=== PATIENT | female | born 1940 | race Caucasian/White ===

== ENCOUNTER 2017-03-30 12:56 | Observation (INO) | payer MEDICARE, OTHER ==
[2017-03-30 13:24] LABS: BASOPHIL# 0.2 X 10^3uL (0.0-0.1); BASOPHILS 3.2 % (0.0-2.0); EOSINOPHILS 0.7 % (0.0-6.0); HEMATOCRIT 26.2 % (36.0-48.0); HEMOGLOBIN 9.2 g/dL (12.0-16.0); LYMPHOCYTES 15.7 % (20.0-40.0); LYMPHOCYTES# 1.1 X 10^3uL (0.8-3.8); MEAN CELL VOLUME 84.2 fL (80.0-100.0); MEAN CORPUSCULAR HEMOGLOBIN 29.5 pg (29.0-35.0); MEAN PLATELET VOLUME 7.8 fL (7.4-10.4); MONOCYTES# 0.4 X 10^3uL (0.2-1.0); NEUTROPHILS 74.4 % (54.0-75.0); RED BLOOD COUNT 3.12 X 10^6uL (4.20-6.10); RED CELL DISTRIBUTION WIDTH 14.4 % (11.5-14.5); WHITE BLOOD COUNT 6.7 X 10^3uL (3.9-10.7)
[2017-03-30] MEDS ORDERED: ONDANSETRON HCL 4 MG/2 ML VIAL ONE ×2 (13:33→13:43)
[2017-03-30] MEDS ORDERED: FENTANYL 100 MCG/2 ML VIAL ONE (13:33)
[2017-03-30 13:38] LABS: ALBUMIN 3.5 g/dL (3.5-5.0); BILIRUBIN, DIRECT 0.3 mg/dL (0.0-0.4); BILIRUBIN, TOTAL 1.1 mg/dL (0.2-1.3); POTASSIUM 4.7 mmol/L (3.5-5.1); TOTAL PROTEIN 7.2 g/dL (6.3-8.2)
--- NOTE | 2017-03-30 15:21 | CT REPORT ---
HISTORY: Diverticulitis. COMPARISON: None. TECHNIQUE: This examination was performed using automated exposure control, adjustment of mA or kV according to patient size, and/or use of iterative reconstruction technique. Axial CT images of the abdomen and pe lvis were obtained following rectal contrast. No intravenous contrast was administered. Please note that the lack of IV contrast decreases the sensitivity of the examination for detection of hepatic, r enal, and pancreatic masses. Lack of oral contrast decreases the sensitivity for detection of bowel pathology. FINDINGS: Abdomen: Lung bases: There is scarring or atelectasis in both lung bases. The heart is mildly enlarged. Liver: The liver appears unremarkable. Gallbladder: The gallbladder is partially contracted. No calcified gallstones are identified. Spleen: Normal. Pancreas: The pancreas is atrophic. Adrenal glands: Normal. Kidneys: There is no evidence of renal or ureteral calculi. There is no hydronephrosis. There is pro bable scarring in the right kidney. There are 2 small hyperdense lesions in the upper pole of the lef t kidney and one small hyperdense lesion in the lower pole the left kidney measuring up to 9 mm in di ameter, likely hyperdense hemorrhagic cysts. Bowel: There may be a tiny hiatal hernia. There is contrast in the colon and refluxing into the dist al ileum. Contrast has also refluxed into the normal-appearing appendix. The small bowel loops are no rmal in caliber. There is mild diffuse thickening of the wall of the descending colon. There are a fe w diverticula in the ascending colon and splenic flexure. Peritoneum: There is trace free fluid along the inferior right hepatic lobe and in the left paracolic gutter. There is a tiny umbilical hernia containing intra-abdominal fat. Retroperitoneum: There is moderate atherosclerosis involving the abdominal aorta. There is no bulky retroperitoneal adenopathy. Pelvis: Bowel: There is a rectal tube. There is mild diffuse thickening of the mid to distal sigmoid colon. There are a few diverticula in the sigmoid colon. Bladder: The sigmoid colon appears to displace the bladder to the right. Otherwise, the bladder appe ars unremarkable. Uterus: The uterus appears unremarkable. Peritoneum: There is trace free fluid in the pelvis. The left inguinal canal is mildly patulous. Retroperitoneum: There is a mildly enlarged right inguinal lymph node (image 71 series 2) measuring up to 1.2 cm in diameter. There are inflammatory changes surrounding the enlarged lymph node. Visualized osseous structures: There are degenerative changes involving the pubic symphysis, hips, a nd sacroiliac joints. There are also degenerative changes in the lumbar spine and visualized portions of the lower thoracic spine. There is mild dextroscoliosis of the thoracolumbar junction. IMPRESSION: 1. Mild diffuse thickening of the mid to distal descending and proximal to mid transverse colon sugg esting colitis which may be infectious or inflammatory in etiology. Ischemia colitis is felt to be le ss likely. 2. Diverticula in the colon without definite evidence of diverticulitis on this unenhanced examinati on. 3. Trace ascites. 4. Probable minimal scarring right kidney. 5. Small hyperdense hemorrhagic cysts left kidney. 6. Mildly enlarged nonspecific right inguinal lymph node with surrounding inflammatory changes which may be related to lymphadenitis. 7. Tiny umbilical hernia. Final Electronic Signature: This report was electronically signed by Bryon Bob MD on 03/30/2017 3 :19 PM. [email or web address] /
[2017-03-30] MEDS ORDERED: ACETAMINOPHEN 325 MG TABLET PO PRN (16:10)
[2017-03-30] MEDS ORDERED: HOME MEDICATION LIST NEEDED 1 EA EACH MC ONE (16:10)
[2017-03-30] MEDS ORDERED: ONDANSETRON HCL 4 MG/2 ML VIAL IV PRN (16:14)
--- NOTE | 2017-03-30 16:39 | RADIOLOGY REPORT ---
HISTORY: Hypoxia. COMPARISON: None. TECHNIQUE: Portable AP chest. FINDINGS: There are mild diffuse increased interstitial lung markings. No focal areas of consolidation. No pleu ral effusions or pneumothoraces. Cardiac silhouette within normal limits. Very mild atherosclerosis aortic arch. Mild to moderate dextroscoliosis thoracolumbar junction. Spondylosis thoracic spine and mild degenerative arthritis acromioclavicular joints. Mild osteopenia. IMPRESSION: 1. Mild diffuse increased interstitial lung markings which may be chronic and due to fibrosis. 2. No focal areas of consolidation. Final Electronic Signature: This report was electronically signed by Bryon Bob MD on 03/30/2017 4 :37 PM. [email or web address] /
--- NOTE | 2017-03-30 16:41 | ER PHYSICIAN DOCUMENTATION ---
Physician Documentation [facility] Name:Briana Singh Age:76 yrs Sex:Female :1940 Arrival Date:03/30/2017 Time:12:56 Bed4 Private MD: Júnior Melo Disposition: 03/30/17 16:10 Admit ordered for Kristy Garcia. Preliminary diagnosis are Colitis - : Inflammatory, Dehydration. - Bed requested for Medical/Surgical. - Condition is Fair. - Problem is new. - Symptoms have improved. 23 HR OBS Yes - Notes: Take Ibuprofen 200mg by mouth every 6 hours for 2 days Take Amoxicillin 250mg by mouth every 8 hours for 10 days Have plenty of popsicles and juice / water to stay hydrated. Avoid kissing your little brother for a few days! Throw away your toothbrush and get a new one in 2 -3 days... HPI: 03/30 13:00 This 76 yrs old Female presents to ER via EMS with complaints of Abdominal cd Pain and abdominal distension. 13:00 The patient presents with abdominal pain in the lower abdomen, abdominal distention in cd the lower abdomen. Onset: The symptoms/episode began/occurred gradually, last night, and became worse today, after going over [address] at 12,000 feet elevation today. The patient has a history of Diverticulitis and feels this may be a reoccurrence. The patient also reports she has Stage 3 Kidney Failure / Renal Insufficiency. The symptoms do not radiate. Associated signs and symptoms: Pertinent positives: anorexia, diarrhea, nausea, vomiting, Pertinent negatives: blood in stools, constipation, dysuria, fever, hematuria, shortness of breath, vomiting blood. The symptoms are described as constant, dull. Severity of pain: At its worst the pain was moderate a 5 / 10 in the emergency department the pain is unchanged. Risk factors for AAA: hypertension. The patient has experienced a previous episode. The patient has not recently seen a physician. Historical: - Allergies: PENICILLINS; HORSE SERUM; - Home Meds: 1. carvedilol oral 2. ropinirole oral 3. pravastatin oral 4. aspirin 81 mg oral TbEC 1 tab once daily 5. Nifedipine ER Oral 6. hydralazine 50 mg oral tab DAILY - PMHx: RENAL FAILURE; DIVERTICULITIS; Hypertension; RESTLESS LEGS; - PSHx: TUBAL LIGATION; Tonsillectomy; - Tetanus: < 10 years. - Ebola Screening: : Patient denies travel to an Ebola-affected area in the 21 days before illness onset. . - Immunization history: Flu Vaccine < 1 year. - Social history: Smoking status: Patient states was never smoker of tobacco. ROS: 15:55 ENT: Negative for injury, pain, epistaxis and discharge. cd Neck: Negative for injury, pain, stiffness and swelling. Cardiovascular: Negative for chest pain, palpitations, edema and pleuritic pain. Respiratory: Negative for shortness of breath, dyspnea on exertion, cough, sputum production, wheezing, hemoptysis and pleuritic chest pain. Back: Negative for injury, pain or muscle spasms. : Negative for injury, bleeding, discharge, dysuria, frequency, urgency and swelling. MS/Extremity: Negative for injury, deformity, edema, calf tenderness, pain or coldness. Skin: Negative for injury, rash, itching and discoloration. 15:55 Neuro: Negative for headache, weakness, numbness, tingling, and seizure. cd 15:55 Constitutional: Positive for poor PO intake, Negative for chills, fever. 15:55 Abdomen/GI: Positive for abdominal pain, nausea, vomiting, diarrhea, abdominal distension, anorexia, Negative for constipation, hematemesis, black/tarry stool, rectal bleeding. 15:55 All other systems are negative. Exam: Eyes: Pupils equal round and reactive to light, extra-ocular motions intact. Lids and lashes normal. Conjunctiva and sclera are non-icteric and not injected. Cornea within normal limits. Periorbital areas with no swelling, redness, or edema. ENT: Nares patent. No nasal discharge, no septal abnormalities noted. Tympanic membranes are normal and external auditory canals are clear. Oropharynx with no redness, swelling, or masses, exudates, or evidence of obstruction, uvula midline. Mucous membranes dry Neck: Trachea midline, no thyromegaly or masses palpated, and no cervical lymphadenopathy. Supple, full range of motion without nuchal rigidity, or vertebral point tenderness. No Meningismus. Chest/axilla: Normal chest wall appearance and motion. Nontender with no deformity. No lesions are appreciated. Back: No spinal tenderness. No costovertebral tenderness. Full range of motion. Skin: Warm, dry with normal turgor. Normal color with no rashes, no lesions, and no evidence of cellulitis. MS/ Extremity: Pulses equal, no cyanosis. Neurovascular intact. Full, normal range of motion. 15:55 Neuro: Awake and alert, GCS 15, oriented to person, place, time, and situation. cd Cranial nerves II-XII grossly intact. Motor strength 5/5 in all extremities. Sensory grossly intact. Cerebellar exam normal. Normal gait. 15:55 Constitutional: The patient appears alert, awake, non-diaphoretic, non-toxic, well developed, well nourished, anxious, in obvious distress, moderately distressed. 15:55 Cardiovascular: Rate: normal, Rhythm: regular, Pulses: no pulse deficits are appreciated, Heart sounds: normal. 15:55 Respiratory: the patient does not display signs of respiratory distress, Respirations: normal, no acute changes, Breath sounds: are normal, clear throughout. 15:55 Abdomen/GI: Inspection: distension, that is moderate, in the right lower quadrant and left lower quadrant, Bowel sounds: diminished, Palpation: moderate abdominal tenderness, in the right lower quadrant and left lower quadrant, mass, is not appreciated, rebound tenderness, is not appreciated, voluntary guarding, is elicited in the right lower quadrant and left lower quadrant, involuntary guarding, is not appreciated, Rectal exam: Stool: brown, guaiac negative, mass, is not appreciated, Indicators: McBurney's point is not tender, Sharp's sign is negative. 15:55 : CVA tenderness, is absent, Rectal exam: Stool: brown. Vital Signs: 13:00 Pulse Ox 70% on R/A; lc 13:03 BP 109 / 35; Pulse 66; Resp 20; Temp 98.3; Pulse Ox 93% on 4 lpm NC; Weight 61.23 kg arc (R); Height 5 ft. 2 in. (157.48 cm) (R); Pain 4/10; 13:40 Pulse 58; Resp 17; Pulse Ox 97% on 3 lpm NC; Pain 2/10; lc 15:08 BP 125 / 43; Pulse 63; Resp 16; Pulse Ox 91% on 2 lpm NC; Pain 2/10; lc 15:41 Pulse 60; Resp 16; Temp 97.6; Pulse Ox 94% on 2 lpm NC; Pain 2/10; lc 13:03 Body Mass Index 24.69 (61.23 kg, 157.48 cm) arc 13:00 PLACED ON 02 lc 13:40 REFUSING PAIN MEDS AT THIS TIME Sd Coma Score: 15:55 Eye Response: spontaneous(4). Verbal Response: oriented(5). Motor Response: obeys cd commands(6). Total: 15. MDM: 13:00 Patient medically screened. cd 13:15 Data interpreted: Pulse oximetry: on room air is 94 %. Interpretation: normal. cd 14:00 Differential diagnosis: bowel obstruction, diverticulitis, Irritable bowel syndrome, cd Mesenteric ischemia or infarction, non-specific abd pain, Pyelonephritis, urinary tract infection, Colitis. 15:00 Data reviewed: vital signs, nurses notes, EMS record, old medical records, lab test cd result(s), radiologic studies, CT scan, and as a result, I will admit patient, initiate a consult, from a [facility]. [facility]. 16:00 Counseling: I had a detailed discussion with the patient and/or guardian regarding: the cd historical points, exam findings, and any diagnostic results supporting the discharge/admit diagnosis, lab results, radiology results, the need for further work-up and treatment in the hospital, risk of leaving the Emergency Department. Response to treatment: the patient's symptoms have markedly improved after treatment, and as a result, I will admit patient. Physician consultation: Kristy Garcia DO was called at 15:00, was contacted at 15:00, regarding admission, to the floor, consult, patient's condition, need to come to ED to see patient, need to evaluate the patient as soon as possible, and will see patient in ED, shortly, later today. Admission orders: after a detailed discussion of the patient's condition and case, the admit orders are written by me. 03/30 13:38 Order name: CBC AUTO DIF, MDIF/RMOR IF IND; Complete Time: 14:01 EDMS 03/30 13:41 Interpretation: Normal Except: HEMOGLOBIN 9.2; HEMATOCRIT 26.2; Anemia. cd 03/30 13:42 Order name: BASIC METABOLIC PANEL; Complete Time: 14:01 EDMS 03/30 14:01 Interpretation: Normal Except: SODIUM 133; BLOOD UREA NITROGEN 35; CREATININE 1.6; cd Hyperglycemia, Chronic Renal Insufficiency, Hyponatremia. 03/30 13:42 Order name: HEPATIC PANEL; Complete Time: 14:01 EDMS 03/30 14:01 Interpretation: Normal. cd 03/30 13:42 Order name: LIPASE; Complete Time: 14:01 EDMS 03/30 14:01 Interpretation: Normal. cd 03/31 06:53 Order name: CBC AUTO DIF, MDIF/RMOR IF IND EDMS 03/31 07:13 Order name: BASIC METABOLIC PANEL EDMS 03/30 15:23 Order name: CAT SCAN; A[place] [id number]; Complete Time: 15:28 EDMS 03/30 15:28 Interpretation: Abnormal: See Radiologist Report. Colitis of the Proximal Transverse cd Colon and the mid - distal descending colon. No obvious Diverticulitis. 03/30 16:41 Order name: CHEST; SINGLE VIEW [id number] EDMS 03/31 09:48 Order name: CXR 2V [id number] EDMS 03/30 13:01 Order name: NPO; Complete Time: 13:28 cd Dispensed Medications: 13:35 Drug: Zofran 4 mg; Route: IVP; Infused Over: 2 mins; Site: right hand; lc 16:18 Follow up: Response: Nausea is decreased lc 13:35 Drug: NS 0.9% 1000 ml; Route: IV; Rate: 150 ml/hr; Site: right hand; lc 16:18 Follow up: IV Status: Infusion continued upon admission; IV Intake: 300ml lc 14:20 Drug: Dilaudid 0.25 mg; Route: IVP; Infused Over: 2 mins; Site: right hand; lc 15:09 Follow up: Response: Pain is decreased lc 16:19 Follow up: Response: Pain is decreased lc Signatures: Nguyen Block, RN RN Júnior Rob MD MD cd
--- NOTE | 2017-03-30 16:41 | ER NURSING DOCUMENTATION ---
Nurse's Notes [facility] Name:Briana Singh Age:76 yrs Sex:Female :1940 Arrival Date:03/30/2017 Time:12:56 Bed4 Private MD: Diagnosis:Colitis-: Inflammatory;Dehydration Presentation: 03/30 13:18 Presenting complaint: Patient states: SINCE LAST PM C/O N/V/D, ABD PAIN AND TROUBLE lc SLEEPING. WENT OVER [place] AND C/O INCREASED ABD PAIN. HX OF DIVERTICULITIS. Transition of care: patient was not received from another setting of care. Risk considerations: KIDNEY FAILURE. 13:18 Acuity: SAL 2 lc 13:18 Method Of Arrival: EMS: 410 lc Triage Assessment: 13:24 General: Appears distressed, ill, Behavior is appropriate for age, cooperative. Pain: lc Complains of pain in abdomen ACROSS ABDOMEN Quality of pain is described as throbbing, Pain began 1 day ago. Neuro: Level of Consciousness is awake, alert, Oriented to person, place, time, none. Cardiovascular: Rhythm is sinus rhythm. Respiratory: Airway is patent Respiratory effort is even, unlabored, Respiratory pattern is regular, symmetrical, Breath sounds are clear bilaterally. GI: Abdomen is distended, Bowel sounds hypoactive in right upper quadrant, left upper quadrant, right lower quadrant and left lower quadrant Abd is soft Abdomen is tender to palpation X 4 quads. Reports diarrhea, nausea, vomiting. Derm: Skin is pale. Historical: - Allergies: PENICILLINS; HORSE SERUM; - Home Meds: 1. carvedilol oral 2. ropinirole oral 3. pravastatin oral 4. aspirin 81 mg oral TbEC 1 tab once daily 5. Nifedipine ER Oral 6. hydralazine 50 mg oral tab DAILY - PMHx: RENAL FAILURE; DIVERTICULITIS; Hypertension; RESTLESS LEGS; - PSHx: TUBAL LIGATION; Tonsillectomy; - Tetanus: < 10 years. - Ebola Screening: : Patient denies travel to an Ebola-affected area in the 21 days before illness onset. . - Immunization history: Flu Vaccine < 1 year. - Social history: Smoking status: Patient states was never smoker of tobacco. Screenin:26 Infectious Disease Risk None. Abuse screen: Denies threats or abuse. Denies injuries lc from another. Nutritional screening: No deficits noted. Assessment: 13:26 See Triage Assessment done by same RN. lc 15:07 Reassessment: Patient states symptoms have improved. Patient appears in no apparent lc distress at this time. RETURNED FROM CT, RN WENT WITH PT TO HELP WITH ENEMA INSERTION DUE TO HEMORRHOIDS. TOLERATED WELL. . 15:55 Reassessment: Patient appears in no apparent distress at this time. RESTING lc COMFORTABLY, DR LARSEN INTO SEE PT FOR POSSIBLE ADMIT.. Vital Signs: 13:00 Pulse Ox 70% on R/A; lc 13:03 BP 109 / 35; Pulse 66; Resp 20; Temp 98.3; Pulse Ox 93% on 4 lpm NC; Weight 61.23 kg arc (R); Height 5 ft. 2 in. (157.48 cm) (R); Pain 4/10; 13:40 Pulse 58; Resp 17; Pulse Ox 97% on 3 lpm NC; Pain 2/10; lc 15:08 BP 125 / 43; Pulse 63; Resp 16; Pulse Ox 91% on 2 lpm NC; Pain 2/10; lc 15:41 Pulse 60; Resp 16; Temp 97.6; Pulse Ox 94% on 2 lpm NC; Pain 2/10; lc 13:03 Body Mass Index 24.69 (61.23 kg, 157.48 cm) arc 13:00 PLACED ON 02 lc 13:40 REFUSING PAIN MEDS AT THIS TIME lc [place] Coma Score: 15:55 Eye Response: spontaneous(4). Verbal Response: oriented(5). Motor Response: obeys cd commands(6). Total: 15. ED Course: 12:57 Patient arrived in ED. arc 13:00 Júnior Blair MD is Attending Physician. cd 13:18 Nguyen Block, RN is Primary Nurse. lc 13:20 Triage completed. lc 13:26 Valuables Remains with patient Patient has correct armband on for positive lc identification. Placed in gown. Bed in low position. Call light in reach. Side rails up X2. Cardiac Monitoring On for Nurse Monitoring only. Pulse Ox - RN Monitoring Only NIBP On - RN Monitoring Only. Warm blanket given. 13:27 Labs drawn. (by ED staff). Sent per order to lab. Maintain field IV. Dressing intact. lc Good blood return noted. Site clean & dry. Gauge & site: 20 G R FA. Flushed right. Oxygen Oxygen administration via nasal cannula @ 3L/min. 14:[address] pm1 14:[address]. dnn 16:09 Kristy Larsen DO is Admitting Physician. cd 16:17 Port Xray Completed. pm1 Administered Medications: 13:35 Drug: Zofran 4 mg; Route: IVP; Infused Over: 2 mins; Site: right hand; lc 16:18 Follow up: Response: Nausea is decreased lc 13:35 Drug: NS 0.9% 1000 ml; Route: IV; Rate: 150 ml/hr; Site: right hand; lc 16:18 Follow up: IV Status: Infusion continued upon admission; IV Intake: 300ml lc 14:20 Drug: Dilaudid 0.25 mg; Route: IVP; Infused Over: 2 mins; Site: right hand; lc 15:09 Follow up: Response: Pain is decreased lc 16:19 Follow up: Response: Pain is decreased lc Intake: 16:18 IV: 300ml; Total: 300ml. Outcome: 15:49 Discharge ordered by . cd 16:10 Decision to Admit by Provider. cd 16:39 Admitted to Med/surg accompanied by nurse, via stretcher, with oxygen, with chart. lc 16:39 Condition: stable 16:39 Report given to JÚNIOR OROZCO 16:39 Instructed on need to admit 16:40 Patient left the ED. Signatures: Nguyen Block RN RN Júnior Rob MD MD cd McBride, Philisha pm1 Bryon Hemphill dnn Lorrie Kay, Rocky Reg arc
[2017-03-30] MEDS: NORMAL SALINE 1,000 ML IV SCH (17:12)
[2017-03-30] MEDS ORDERED: HOME MEDICATION LIST NEEDED 1 EA EACH MISC ONE (20:00)
[2017-03-30] MEDS ORDERED: ROPINIROLE 1 MG TABLET PO ONE (23:44)
[2017-03-31] MEDS: NORMAL SALINE 1,000 ML IV SCH (03:51)
--- NOTE | 2017-03-31 06:42 | HISTORY & PHYSICAL ---
DATE OF ADMISSION: 03/30/17 ATTENDING PHYSICIAN: Kristy Garcia MD CHIEF COMPLAINT: Abdominal pain. HISTORY OF PRESENT ILLNESS: The patient is a 76-year-old female with a complicated medical history including progressive GI symptoms over the last month as well as a 12-pound weight loss. This was started to be worked up by her Primary Care Physician and Sewing Machine Tester back in [place] prior to this scheduled vacation to [place] for a family reunion. Patient states that she has had a colonoscopy within the last few weeks, which noted some diverticulitis but no other acute abnormalities and was told by the GI physician that she would need to come back to have an EGD. Patient also mentions that she hit her head prior to her planned trip and had ongoing pain. She did go to the Emergency Room in [place] on Friday of last week. At that time, she had a CT scan which showed a bruise in the area of concern, and a questionable old cerebrovascular accident. Patient came to [place] with 3 of her other elderly cousins for a planned family reunion in [place]. They arrived to [place] on and have been there through the weekend with return to [place] today. When they were at the [facility], they noticed that she was significantly more short of breath and having increased abdominal pain. She was evaluated [facility] the [facility] and subsequently brought into the Emergency Department for further evaluation. Patient states that she was noted to have low oxygen levels when in [place] even as low as 83. She did buy an over the counter oxygen which only lasted for a short period of time. She does not typically wear oxygen at home. Her abdominal pain, she states that she has just had some ongoing GI symptoms over the last month, but yesterday she had progressive abdominal pain. She even had 1 episode of vomiting, and a few episodes of loose stools. She did eat 2 big meals yesterday and previously has not had much appetite. When she came into the Emergency Room she was pointing to her lower abdomen, as she states that she sometimes has pain on the left lower quadrant. She does have a history of diverticulitis, so she was wondering if something like that was flaring up. PAST MEDICAL HISTORY (Difficult to fully obtain as patient is not overly clear with history.) 1. Known history of chronic kidney disease. 2. History of diverticulitis. 3. History of hypertension. 4. Restless leg. 5. TIAs in 2008. 6. Patient states that she has in past been told of potential heart failure, but has not had any symptoms or further workup. PAST SURGICAL HISTORY 1. Tubal ligation and tonsillectomy. FAMILY HISTORY: Mother had colon cancer. SOCIAL HISTORY: Patient does lives in [facility]. She does not smoke currently. She quit in her 60s and had periodic smoking for that time. Denies any regular alcohol use. MEDICATIONS (unknown doses) Carvedilol. Ropinirole. Pravastatin. Aspirin. ALLERGIES: Penicillin. REVIEW OF SYSTEMS GENERAL: Patient is fatigued as well as noted weight loss and decreased energy. HEENT: She did have headache last week related to a closed head injury, which has now improved. She did have an Emergency Room in [place] for this. No visual changes. She does have a dry mouth. RESPIRATORY: Shortness of breath. Noted some shortness of breath here but she states that she has been noticing progressive shortness of breath for the last year even in [place]. CARDIOVASCULAR: Denies chest pain. Denies palpitations. No significant swelling in her legs. ABDOMEN: Positive for pain, bloating, distention and decreased appetite. PHYSICAL EXAMINATION VITAL SIGNS: Temperature 98.3, blood pressure 125/43, pulse 53, respiratory rate 16. She is 91% on room air. GENERAL: Patient appears mildly ill. She comfortable lying in bed but obviously is not wanting to move for fear of pain. HEENT: Normocephalic, atraumatic. Pupils are reactive. Oropharynx with mildly dry mucous membranes but otherwise clear. No jugular venous distention noted. CARDIOVASCULAR: Sinus rhythm. No murmur. RESPIRATORY: Equal respiratory. She takes shallow breaths and she states that big breaths hurt her belly, but otherwise clear. GI: Abdomen is distended. She has hypoactive bowel sounds. She does not have any rebound tenderness, but she definitely guards for the exam. No peritoneal signs. SKIN: She has pale skin with a chronic right leg rash. EXTREMITIES: No edema. NEURO: Cranial nerves 2-12 are grossly intact. LABORATORY: CBC shows a white count of 6.7, hemoglobin 9.2, hematocrit 26.2, platelets of 154. BMP showed sodium 133, potassium 4.7, chloride 100, bicarb 23 , BUN 35, creatinine 1.6, glucose of 105, calcium was 9. Total bilirubin 1.1, direct bilirubin 0.3, lipase of 20. AST 34, ALT 17, alkaline phosphatase 46. IMAGING: CT of the abdomen and pelvis shows mild diffuse thickening of the mid to distal descending and proximal mid transverse colon suggesting colitis, which may be infectious and inflammatory in etiology. Ischemic colitis is felt to be less likely. Diverticula in the colon without definite evidence of diverticulitis on examination. Trace ascites. Probable minimal scarring, right kidney. Small hyperdense hemorrhagic cysts of the left kidney. Mild enlargement of right inguinal lymph node with surrounded inflammatory changes which may be related to lymphadenitis. Tiny umbilical hernia. I did ask for a chest x-ray to be added, report not available at this time. ASSESSMENT/PLAN: This is a 76-year-old female visiting from [place] with recent history of 12-puond weight loss with initial workup in [place] prior to travel, who presents with worsening abdominal pain from colitis. 1. Abdominal pain and colitis. This appears to be a noninfectious etiology. She did have 1 day of vomiting and diarrhea but no persistent diarrhea. Her white count is not elevated and no significant elevation in neutrophils. Discussed with patient plan of care at this time, which would include bowel rest, IV fluids through the night with IV pain and nausea medications. Patients end goal is to be able to be discharged to get back to [place] and hopes that an evening of bowel rest calm her symptoms enough to be able to be discharged tomorrow morning. Patient did have a colonoscopy prior to this recent travel, in which she declines any significant complications, but do wonder what the findings were on that colonoscopy, if they noted this inflammation or not at that time. If patient is not responding and will anticipate need for a longer stay, do need to get those records from [place] tomorrow. 2. Weight loss. This is an ongoing issue for patient and she is in the process of working this up with her physicians back in [place]. Do not feel that current symptoms are significantly associated with the weight loss, and did discuss with patient that she will need further evaluation and workup for this with her primary care physicians. Her abdomen did not show any significant findings in her liver, gallbladder, spleen, pancreas, adrenal glands, etc. Again , we reviewed with patient that she will need to continue to work this up with her primary care physician. 3. Anemia. This is likely a combination of chronic disease related to her kidney disease, as she is normocytic, but also potential concern with her weight loss. Patient admits to having colonoscopy just a few weeks ago which did not have any significant findings, although it was noted that she has hemorrhoids on exam. She is going to be scheduled for an EGD when she returns for further monitoring with her primary care physician. 4. Hypoxia. This is likely a combination of altitude and anemia. Patient was short of breath at higher altitude. Will continue supplemental oxygen and discuss with patient as she returns to lower altitude, she will need to have this monitored and further worked up if it continues. 5. Hyponatremia. This is most likely secondary to decreased oral input. Will replete fluids and reassess. 6. Chronic kidney disease. Unclear what patient's baseline is as she is not able to give me a clear history. Will recheck in the morning after fluid hydration. 7. Hypertension. Currently blood pressure is stable. We will hold her medication at this time. 8. Restless leg. Will give an evening dose of medication. 9. History of transient ischemic attack. Patient has no sequela from this. She did state that she had a recent CT scan with questionable cerebrovascular accident, but she will follow up with her primary care physician as well. 10. Full COR, full tube. 11. Disposition. Again, patient is a visitor traveling through [place] on her way back to [place]. With her symptoms, we recommended for observation and monitoring for further pain control and bowel rest, but patient is really wanting to get on the road tomorrow. Will reassess and if stable for discharge, will allow with patient understanding she will likely continue to have some symptoms and need close monitoring. Since I am not in the office, I will ask one of covering providers to cover. JELENA
[2017-03-31 06:47] LABS: BASOPHILS 0.2 % (0.0-2.0); EOSINOPHILS 2.6 % (0.0-6.0); EOSINOPHILS# 0.1 X 10^3uL (0.0-0.4); HEMATOCRIT 26.8 % (36.0-48.0); LYMPHOCYTES 18.8 % (20.0-40.0); LYMPHOCYTES# 0.8 X 10^3uL (0.8-3.8); MEAN CELL VOLUME 86.5 fL (80.0-100.0); MEAN CORPUS. HGB CONCENTRATION 33.5 g/dL (32.0-36.0); MEAN PLATELET VOLUME 7.5 fL (7.4-10.4); MONOCYTES 6.8 % (2.0-10.0); MONOCYTES# 0.3 X 10^3uL (0.2-1.0); NEUTROPHILS 71.6 % (54.0-75.0); NEUTROPHILS# 2.9 X 10^3uL (2.6-6.7); RED BLOOD COUNT 3.09 X 10^6uL (4.20-6.10); RED CELL DISTRIBUTION WIDTH 14.3 % (11.5-14.5); WHITE BLOOD COUNT 4.1 X 10^3uL (3.9-10.7)
[2017-03-31 07:11] LABS: CALCIUM 8.6 mg/dL (8.4-10.2); POTASSIUM 3.9 mmol/L (3.5-5.1)
[2017-03-31 07:30] VITALS: BP 128/52; PULSE 59; RESP 24; TEMP 97.6; O2SAT 90
--- NOTE | 2017-03-31 08:51 | PROGRESS NOTE: IM SOAP ---
IM: PN Subjective General: fatigue, no good appetite (But hungry for breakfast this morning.), no fever, no chills (No sweats. She states tahat she had chills prior to admission , but no fevers.), no other (No sweat) HEENT: headache, no visual changes, no sore throat Cardiovascular: dizziness (Minimal.), no chest pain, no chest pressure, no palpitations Respiratory: cough, sputum (She began having a cough productive of thick, clear sputum prior to admission.), SOB (Especially with exertion.) Gastrointestinal: abdominal pain (Greatest LLQ. 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 Stools nonbloody. ) Genitourinary: no dysuria, no flank pain Musculoskeletal: weakness, no swelling Neurological: headache (s/p recent CHI. ) IM: PN Objective Exam - I&O/Vital Signs I&O: Intake & Output 03/30/17 03/31/17 03/31/17 21:59 05:59 13:59 Intake Total 200 1320 Output Total 600 900 Balance -400 420 Weight 61.235 kg 62.823 kg Intake: IV 200 1080 Right Hand 200 1080 Oral 0 240 Output: Urine 600 900 Stool 0 Other: Urine Appearance Clear Urine Color Yellow Stool Size Small Stool Characteristics Liquid Brown Voiding Method Toilet Toilet # Bowel Movements 1 Vital Signs: Last Vital Signs Temp 36.4 C 03/31/17 07:00 Pulse 59 L 03/31/17 07:00 Resp 24 03/31/17 07:00 BP 128/52 03/31/17 07:00 Pulse Ox 90 03/31/17 07:00 Oxygen Flow Rate 3 Oxygen Delivery Method Nasal Cannula - Constitutional General appearance: Present: average body habitus, cooperative. Absent: acute distress - Head Head exam: Present: atraumatic, normal inspection, normocephalic - Eye Eye exam: Present: EOMI, PERRL - ENT ENT exam: Present: mucous membranes moist - Respiratory Respiratory exam: Present: rales (Throughout. ). Absent: accessory muscle use , respiratory distress, wheezes - Cardiovascular Cardiovascular exam: Present: bradycardia (50s.), RRR. Absent: systolic murmur - GI/Abdominal GI/Abdominal exam: Present: distended, guarding (Diffuse guarding with palpation of entire abdomen.), hypoactive bowel sounds, tenderness (Diffuse, greatestat LLQ. ). Absent: rebound - Extremities Exam Extremities exam: Absent: calf tenderness, Brea's Sign, edema, tenderness - Back Exam Back exam: Absent: CVA tenderness (L), CVA tenderness (R) - Neurological Exam Neurological exam: Present: oriented X3 - Psychiatric Psychiatric exam: Present: normal affect, normal mood - Allied Health Notes Allied health notes reviewed: nursing - Lab Labs: Laboratory Last Values WBC 4.1 X 10^3uL (3.9-10.7) 03/31/17 06:00 RBC 3.09 X 10^6uL (4.20-6.10) L 03/31/17 06:00 Hgb 9.0 g/dL (12.0-16.0) L 03/31/17 06:00 Hct 26.8 % (36.0-48.0) L 03/31/17 06:00 MCV 86.5 fL (80.0-100.0) 03/31/17 06:00 MCH 29.0 pg (29.0-35.0) 03/31/17 06:00 MCHC 33.5 g/dL (32.0-36.0) 03/31/17 06:00 RDW 14.3 % (11.5-14.5) 03/31/17 06:00 Plt Count 150 X 10^3uL (130-440) 03/31/17 06:00 MPV 7.5 fL (7.4-10.4) 03/31/17 06:00 Neutrophils % 71.6 % (54.0-75.0) 03/31/17 06:00 Lymphocytes % 18.8 % (20.0-40.0) L 03/31/17 06:00 Eosinophils % 2.6 % (0.0-6.0) 03/31/17 06:00 Basophils % 0.2 % (0.0-2.0) 03/31/17 06:00 Neutrophils # 2.9 X 10^3uL (2.6-6.7) 03/31/17 06:00 Lymphocytes # 0.8 X 10^3uL (0.8-3.8) 03/31/17 06:00 Monocytes 6.8 % (2.0-10.0) 03/31/17 06:00 Monocytes # 0.3 X 10^3uL (0.2-1.0) 03/31/17 06:00 Eosinophils # 0.1 X 10^3uL (0.0-0.4) 03/31/17 06:00 Basophils # 0.0 X 10^3uL (0.0-0.1) 03/31/17 06:00 Sodium 138 mmol/L (137-145) 03/31/17 06:00 Potassium 3.9 mmol/L (3.5-5.1) 03/31/17 06:00 Chloride 106 mmol/L (98-107) 03/31/17 06:00 Carbon Dioxide 22 mmol/L (22-30) 03/31/17 06:00 BUN 25 mg/dL (7-17) H 03/31/17 06:00 Creatinine 1.5 mg/dL (0.5-1.0) H 03/31/17 06:00 GFR Calculation 36 mL/min 03/31/17 06:00 Glucose 83 mg/dL (70-100) 03/31/17 06:00 Calcium 8.6 mg/dL (8.4-10.2) 03/31/17 06:00 Total Bilirubin 1.1 mg/dL (0.2-1.3) 03/30/17 13:00 Direct Bilirubin 0.3 mg/dL (0.0-0.4) 03/30/17 13:00 AST 34 U/L (14-36) 03/30/17 13:00 ALT 17 U/L (9-52) 03/30/17 13:00 Alkaline Phosphatase 46 U/L (38-126) 03/30/17 13:00 Total Protein 7.2 g/dL (6.3-8.2) 03/30/17 13:00 Albumin 3.5 g/dL (3.5-5.0) 03/30/17 13:00 Lipase 20 U/L (23-300) L 03/30/17 13:00 Assessment and Plan - Date of Encounter Date of Encounter: 03/31/17 (1) Colitis Status: Acute Assessment and plan: Admitted with LLQ abdominal pain. CT showed colitis which is most likely inflammatory and not infectious in etiology. She has not had any F/C/S. WBC normal. No antibiotics given. Needs close follow-up in [place]. I have had a long discussion with Briana. I would recommend continued inpatient stay. She wants to go back home to [place]. I have reviewed strict precautions to go to the ED on her car trip home if she has worsening symptoms. Current Visit: Yes (2) Weight loss Status: Acute Assessment and plan: Weight loss concerning for underlying cancer. She has seen GI and had colonoscopy. Will have EGD when she returns home to [place]. She has significant anemia. She needs an extensive workup and referral to invoice control clerk /oncologist in [place]. Current Visit: Yes (3) Lymphadenopathy Status: Acute Assessment and plan: Enlarged R inguinal lymph node seen on CT most likely consistent with lymphadenitis. Will need follow-up in [place]. Current Visit: Yes (4) Chronic kidney failure Status: Chronic Assessment and plan: Known CRF. Admission creatinine 1.6 and 1.5 this morning. Follow closely as outpatient. Current Visit: Yes (5) Anemia Status: Acute Assessment and plan: Unknown H/H baseline, suspect chronic anemia. Needs additional workup as outpatient. No evidence of active bleeding. Current Visit: Yes (6) Hypoxemia Status: Acute Assessment and plan: No home oxygen. 70% on RA in ED. Now, 76% on RA with ambulation; 78% on RA at rest; 92% on 2 liters. She will pay for oxygen tank out of [facility] for travel. CXR in ED shows probable underlying fibrosis. Rechekc this morning is similar with official CXR radiology reading pending. Strict precautions reviewed to go to ED with travel for worsening SOB. Current Visit: Yes (7) Hyponatremia Status: Resolved Assessment and plan: Sodium now normalized after IVF. Current Visit: Yes - Time Spent With Patient Total time spent with greater than 50% in coordination of care (as documented) at patient's floor/unit and/or counseling patient: 25 - 35 minutes Estimated anticipated discharge: Today Quality Questions - VTE Prophylaxis Assessment VTE Present on Admission?: No Patient at risk for venous thromboembolism?: Yes VTE Risk Level: Moderate Risk Pharmaceutical VTE prophylaxis contraindication reason: N/A- VTE prophylaxsis ordered Mechanical VTE prophylaxis contraindication reason: N/A- VTE prophylaxsis ordered (4) Chronic kidney failure Qualifiers: Chronic kidney disease stage: unspecified stage Qualified Code(s): N18.9 - Chronic kidney disease, unspecified (5) Anemia Qualifiers: Anemia type: unspecified type Qualified Code(s): D64.9 - Anemia, unspecified
[2017-03-31] MEDS ORDERED: ROPINIROLE 1 MG TABLET PO ONE (09:00)
--- NOTE | 2017-03-31 09:46 | RADIOLOGY REPORT ---
HISTORY: Hypoxemia COMPARISON: 03/30/2017 FINDINGS: 2 views of the chest obtained. Persistent left basilar opacity, which may be slightly increased maribel red to the prior. Questionable trace left effusion. Mild right medial basilar airspace opacity. Cardi ac silhouette size within normal limits. No pneumothorax. Osseous structures stable. IMPRESSION: Persistent left basilar opacity likely representing atelectasis although infection or aspiration is p ossible. Right medial basilar opacity likely represents atelectasis. Possible trace left effusion. Final Electronic Signature: This report was electronically signed by Jake Christensen MD on 03/31/2017 9:43 AM. [email or web address] /
[2017-03-31] MEDS ORDERED: MULTIVITAMINS THERAPEUTIC 1 TABLET ONE (10:04)
[2017-03-31] MEDS ORDERED: MAGNESIUM OXIDE 400 MG TABLET PO ONE (10:04)
[2017-03-31] MEDS ORDERED: HYDROCHLOROTHIAZIDE 25 MG TABLET PO ONE (10:04)
[2017-03-31] MEDS ORDERED: FOLIC ACID 1 MG TABLET PO ONE (10:04)
[2017-03-31] MEDS ORDERED: ENOXAPARIN SODIUM 40 MG/0.4 ML SYR SUBCUT ONE (10:05)
[2017-03-31] MEDS ORDERED: CHOLECALCIFEROL 1,000 UNIT CAPSULE PO ONE (10:05)
[2017-03-31] MEDS ORDERED: FLUTICASONE/SALMETEROL 100/50 14 INH DISK INHALATION ONE (10:05)
[2017-03-31] MEDS ORDERED: DOCUSATE SODIUM 100 MG CAPSULE PO ONE (10:05)
--- NOTE | 2017-03-31 10:05 | DC SUMMARY: IM Note ---
Discharge Summary: IM/Peds Provider: Date of Admission: 03/30/17 Admitting Provider: COREEN LARSEN Attending Provider: COREEN LARSEN Discharging Provider: SE BATRES MD Primary Care Provider: Discharge Date: 03/31/17 - Diagnosis (1) Colitis Status: Acute (2) Weight loss Status: Acute (3) Lymphadenopathy Status: Acute (4) Chronic kidney failure Status: Chronic Qualifiers: Chronic kidney disease stage: unspecified stage Qualified Code(s): N18.9 - Chronic kidney disease, unspecified (5) Anemia Status: Acute Qualifiers: Anemia type: unspecified type Qualified Code(s): D64.9 - Anemia, unspecified (6) Hypoxemia Status: Acute (7) Hyponatremia Status: Resolved - Time Spent with Patient Total time spent providing and/or coordinating discharge services: Time with patient DS: Greater than 30 minutes Discharge - Patient/Caregiver Discharge Instructions Activity Level: As tolerated. Diet: Regular as tolerated. Overall discharge status: patient is not back to baseline Print Language: SWISS Orders: Home Oxygen Location: Determined By Patient Care Plan Goals: Please wear your oxygen as you drive to [place]. It would be beneficial for you to purchase a portable pulse oximeter and check your pulse oximetry reading en route. SPO2 readings above 92% are what you want to maintain. Traveling by car * Place the oxygen unit upright. Put it on the floor or on the seat beside you. Secure the unit with a seat belt. * Dont smoke or let anyone else smoke in the car. * Keep the windows open at least crack so air can circulate. * Store extra oxygen units upright in the trunk or on the floor of the car. * Dont leave oxygen units in a hot car. Avoid sugary drinks (i.e. sodas and juice). Drink plenty of water. Eat a light, bland diet (i.e. bananas, rice, applesauce toast). Return to the hospital if your pain gets worse, you have uncontrollable nausea, vomiting and/or diarrhea. Disposition: HOME, SELF-CARE Discharge Summary Data - Medication History Medication History: Home Medications Carvedilol [Coreg] 25 mg PO BID 03/31/17 Hydrocortisone [Preparation H] 1 kellie RECTAL DAILY PRN 03/31/17 Nifedipine [Procardia Xl] 30 mg PO EVERY MORNING 03/31/17 Pravastatin Sodium [Pravachol] 80 mg PO DAILY 03/31/17 Ropinirole HCl [Ropinirole HCl*] 1 mg PO BID 03/31/17 aspirin EC [Aspirin EC*] 81 mg PO DAILY 03/31/17 hydrALAZINE HCL [Hydralazine HCl] 37.5 mg PO TID 03/31/17 Inpatient Medications 03/31/17 21:00 Ropinirole HCl [Requip] 0.5 mg PO HS Procedures and tests throughout hospitalization: Completed Imaging Orders 03/31/17 09:02 [id number] [CXR 2V 71222] [RAD] Stat Pending Orders 03/31/17 21:00 Ropinirole HCl [Requip] 0.5 mg PO HS 03/31/17 Lunch Regular [DIET] Labs on day of discharge: Labs from last 24 hours 03/31/17 06:00 WBC 4.1 RBC 3.09 L Hgb 9.0 L Hct 26.8 L MCV 86.5 MCH 29.0 MCHC 33.5 RDW 14.3 Plt Count 150 MPV 7.5 Neutrophils % 71.6 Lymphocytes % 18.8 L Eosinophils % 2.6 Basophils % 0.2 Neutrophils # 2.9 Lymphocytes # 0.8 Monocytes 6.8 Monocytes # 0.3 Eosinophils # 0.1 Basophils # 0.0 Sodium 138 Potassium 3.9 Chloride 106 Carbon Dioxide 22 BUN 25 H Creatinine 1.5 H GFR Calculation 36 Glucose 83 Calcium 8.6 - Impressions See H&P and progress note from today for full details. Admitted with abdominal pain most likely related to noninfectious colitis. Minimally better after IVF and bowel rest overnight. Insists on being discharged home to drive back to [place]. Strict precautions reviewed to got to ED en routs if abdominal pain or SOB worsens. Home on oxygen 2L 24 hours daily. Recheck O2 levels in [place]. We are ar nearly 8000 feet elevation here in [place], [place]. IM: Discharge Physical Exam - I&O/Vital Signs I&O: Intake & Output 03/30/17 03/31/17 03/31/17 21:59 05:59 13:59 Intake Total 200 1320 Output Total 600 900 Balance -400 420 Weight 61.235 kg 62.823 kg Intake: IV 200 1080 Right Hand 200 1080 Oral 0 240 Output: Urine 600 900 Stool 0 Other: Urine Appearance Clear Urine Color Yellow Stool Size Small Stool Characteristics Liquid Brown Voiding Method Toilet Toilet # Bowel Movements 1 Vital Signs: Last Vital Signs Temp 36.4 C 03/31/17 07:00 Pulse 59 L 03/31/17 07:00 Resp 24 03/31/17 07:00 BP 128/52 03/31/17 07:00 Pulse Ox 90 03/31/17 07:00 Oxygen Flow Rate 3 Oxygen Delivery Method Nasal Cannula - Constitutional General appearance: Present: average body habitus, cooperative. Absent: acute distress - Head Head exam: Present: atraumatic, normal inspection, normocephalic - Eye Eye exam: Present: EOMI, PERRL - ENT ENT exam: Present: mucous membranes moist - Respiratory Respiratory exam: Present: rales (Throughout. ). Absent: accessory muscle use , respiratory distress, wheezes - Cardiovascular Cardiovascular exam: Present: bradycardia (50s.), RRR. Absent: systolic murmur - GI/Abdominal GI/Abdominal exam: Present: distended, guarding (Diffuse guarding with palpation of entire abdomen.), hypoactive bowel sounds, tenderness (Diffuse, greatestat LLQ. ). Absent: rebound - Extremities Exam Extremities exam: Absent: calf tenderness, Brea's Sign, edema, tenderness - Back Exam Back exam: Absent: CVA tenderness (L), CVA tenderness (R) - Neurological Exam Neurological exam: Present: oriented X3 - Psychiatric Psychiatric exam: Present: normal affect, normal mood - Allied Health Notes Allied health notes reviewed: nursing
[2017-03-31] MEDS ORDERED: ROPINIROLE 1 MG TABLET PO SCH (21:00)
== END 2017-03-31 10:07 | disposition home or self-care (01) ==
LOC: ER 12:56 → UNDOADMOB 16:31 → IN 16:31
PROVIDERS: ADMIT Family Medicine; ATTEND Family Medicine
DX: K52.9 Noninfective gastroenteritis and colitis, unspecified (principal); R09.02 Hypoxemia; E87.1 Hypo-osmolality and hyponatremia; D63.1 Anemia in chronic kidney disease; R63.4 Abnormal weight loss; I12.9 Hypertensive chronic kidney disease with stage 1 through stage 4 chronic kidney disease, or unspecified chronic kidney disease; N18.9 Chronic kidney disease, unspecified; Z86.73 Personal history of transient ischemic attack (TIA), and cerebral infarction without residual deficits; G25.81 Restless legs syndrome; K57.90 Diverticulosis of intestine, part unspecified, without perforation or abscess without bleeding; Z79.899 Other long term (current) drug therapy; Z74.3 Need for continuous supervision
CPT/HCPCS: 36415; 71010; 71020; 74176; 80048; 80076; 83690; 85025; 96361; 96374; 96375; 99217; 99219; 99285; A0425; A0426; G0378; J1170; J1650; J2405; J3010; J7030